=== PATIENT | female | born 1985 | race Two or more races ===

== ENCOUNTER → 2017-05-12 | Outpatient (CLI) | payer BC | END | disposition home or self-care (01) | LOC: US 13:26 | DX: Z34.92 Encounter for supervision of normal pregnancy, unspecified, second trimester (principal); Z3A.20 20 weeks gestation of pregnancy | CPT/HCPCS: 76805 ==

== ENCOUNTER → 2017-06-17 | Outpatient (CLI) | payer BC | END | disposition home or self-care (01) | LOC: US 08:09 | DX: O36.62X0 Maternal care for excessive fetal growth, second trimester, not applicable or unspecified (principal); Z3A.25 25 weeks gestation of pregnancy | CPT/HCPCS: 76805 ==

== ENCOUNTER 2017-09-30 07:07 | Inpatient (IN) | payer BC ==
[2017-09-30] MEDS ORDERED: 0.9 % SODIUM CHLORIDE 10 ML DISP.SYRIN. IV (07:45)
[2017-09-30] MEDS ORDERED: TERBUTALINE 1 MG/ML VIAL. SQ (07:45)
[2017-09-30] MEDS ORDERED: fentaNYL PF VIAL 100 MCG/2 ML VIAL IV ×2 (07:45)
[2017-09-30] MEDS ORDERED: OXYTOCIN 30 UNIT/500 ML PREMIX 500 ML IV (07:45)
[2017-09-30] MEDS ORDERED: LIDOCAINE 1% PF 30 ML VIAL. INJ (07:45)
[2017-09-30 08:52] LABS: ADD MAN DIFF? NO
[2017-09-30 08:59] LABS: BASO % 0 % (0-3); EOS # 0.1 x10^3/uL (0.0-0.7); EOS % 1 % (0-3); HEMATOCRIT 39.6 % (36.0-47.0); HEMOGLOBIN 13.4 g/dL (12.0-15.5); LYMPH # 2.3 x10^3/uL (1.0-4.8); LYMPH % 23 % (24-48); MEAN CORPUSCULAR HEMOGLOBIN 30 pg (25-35); MEAN CORPUSCULAR HGB CONC 34 g/dL (31-37); MEAN CORPUSCULAR VOLUME 88 fL (79-100); MONO # 1.1 x10^3/uL (0.0-1.1); MONO % 11 % (0-9); NEUT # 6.4 x10^3uL (1.8-7.7); NEUT % 65 % (31-73); PLATELET COUNT 213 x10^3/uL (140-400); RED BLOOD COUNT 4.47 x10^6/uL (3.50-5.40); RED CELL DISTRIBUTION WIDTH 14.8 % (11.5-14.5); WHITE BLOOD COUNT 9.9 x10^3/uL (4.0-11.0)
[2017-09-30] MEDS ORDERED: L&D EPIDURAL 50 ML SYRINGE. EP (12:00)
[2017-09-30] MEDS ORDERED: ROPIVacaine 0.2% IN 0.9%NACL PF 40 MG/20 ML DISP.SYRIN. ×2 (12:00→16:48)
[2017-09-30] MEDS: OXYTOCIN 30 UNIT/500 ML PREMIX 500 ML IV (12:13)
[2017-09-30] MEDS: IV RINGERS,LACTATED 1000ML 1,000 ML IV ×2 (12:14→21:04)
[2017-09-30] MEDS ORDERED: L&D EPIDURAL SYRINGE 50 ML EP ×2 (16:48→21:19)
[2017-09-30] MEDS ORDERED: IV RINGERS,LACTATED 1000ML 1,000 ML IV (17:12)
[2017-09-30] MEDS ORDERED: ROPIVacaine 0.2% IN 0.9%NACL PF 40 MG/20 ML DISP.SYRIN. EPI (17:15)
[2017-09-30] MEDS ORDERED: NALOXONE 0.4 MG/ML VIAL. IV (17:15)
[2017-09-30] MEDS ORDERED: ONDANSETRON PF 4 MG/2 ML VIAL. IV (17:15)
[2017-09-30] MEDS ORDERED: ePHEDrine PF IN SALINE 50 MG/5 ML DISP.SYRIN IV (17:15)
[2017-09-30] MEDS ORDERED: AMPICILLIN SODIUM 2 GM in IV NORMAL SALINE 100ML 100 ML IV (22:30)
[2017-09-30] MEDS: ACETAMINOPHEN 500 MG TABLET PO (23:02)
[2017-09-30] MEDS: GENTAMICIN SULFATE IV (23:04)
[2017-09-30] MEDS: NORMAL SALINE IV (23:04)
[2017-09-30] MEDS: AMPICILLIN SODIUM IV Push 2 GM VIAL. IVP (23:19)
[2017-10-01] MEDS: L&D EPIDURAL SYRINGE 50 ML EP (01:57)
[2017-10-01] MEDS ORDERED: miSOPROStol 200MCG TAB 200 MCG TABLET (02:54)
[2017-10-01] MEDS ORDERED: AMPICILLIN SODIUM IV Push 2 GM VIAL. IVP (05:00)
[2017-10-01] MEDS ORDERED: AMPICILLIN SODIUM 2 GM in IV NORMAL SALINE 100ML 100 ML IV (05:20)
[2017-10-01] MEDS: fentaNYL PF VIAL 100 MCG/2 ML VIAL EPI (06:06)
[2017-10-01] MEDS: GENTAMICIN SULFATE IV (06:20)
[2017-10-01] MEDS: NORMAL SALINE IV (06:20)
[2017-10-01] MEDS ORDERED: 0.9 % SODIUM CHLORIDE 10 ML DISP.SYRIN. IV (11:15)
[2017-10-01] MEDS ORDERED: HYDROCORTISONE 1% TOPICAL OINTMENT 30GM TUBE. TP (11:15)
[2017-10-01] MEDS ORDERED: MAGNESIUM HYDROXIDE 2,400 MG/30 ML ORAL.SUSP. PO (11:15)
[2017-10-01] MEDS ORDERED: MMR per PROTOCOL. MC (11:15)
[2017-10-01] MEDS ORDERED: PHENYLEPH/MINERAL OIL/PETROLAT RECTAL OINTMENT 28GM TUBE. RC (11:15)
[2017-10-01] MEDS ORDERED: OXYTOCIN 30 UNIT/500 ML PREMIX 500 ML IV (11:15)
[2017-10-01] MEDS ORDERED: SIMETHICONE 80 MG TAB.CHEW PO (11:15)
[2017-10-01] MEDS ORDERED: diphenhydrAMINE HCL 25 MG CAPSULE PO (11:15)
[2017-10-01] MEDS ORDERED: MAG HYDROX/ALUMINUM HYD/SIMETH 30 ML ORAL.SUSP PO (11:15)
[2017-10-01] MEDS ORDERED: ACETAMINOPHEN 325 MG TABLET. PO (11:15)
[2017-10-01] MEDS: IBUPROFEN 800 MG TABLET. PO (11:29)
[2017-10-01] MEDS: BENZOCAINE 20% TOPICAL AEROSOL SPRAY 57GM CAN. TP (11:30)
[2017-10-01 11:50] LABS: BASO # 0.2 x10^3/uL (0.0-0.2); BASO % 1 % (0-3); EOS % 0 % (0-3); HEMATOCRIT 33.7 % (36.0-47.0); HEMOGLOBIN 11.6 g/dL (12.0-15.5); LYMPH # 1.9 x10^3/uL (1.0-4.8); LYMPH % 11 % (24-48); MEAN CORPUSCULAR HEMOGLOBIN 30 pg (25-35); MEAN CORPUSCULAR HGB CONC 34 g/dL (31-37); MEAN CORPUSCULAR VOLUME 88 fL (79-100); MONO # 1.4 x10^3/uL (0.0-1.1); MONO % 9 % (0-9); NEUT % 79 % (31-73); PLATELET COUNT 192 x10^3/uL (140-400); RED BLOOD COUNT 3.82 x10^6/uL (3.50-5.40); RED CELL DISTRIBUTION WIDTH 14.6 % (11.5-14.5); WHITE BLOOD COUNT 16.6 x10^3/uL (4.0-11.0)
[2017-10-01 11:57] LABS: ADD MAN DIFF? YES
[2017-10-01 12:42] LABS: % BANDS 12 % (0-9); % LYMPHS 6 % (24-48); % MONOS 10 % (0-10); % SEGS 72 % (35-66); PLT ESTIMATE ADEQUATE (ADEQUATE)
[2017-10-01] MEDS: DOCUSATE SODIUM 100 MG CAPSULE. PO (17:51)
[2017-10-01] MEDS: oxyCODONE/APAP 5/325 1 TAB TABLET PO (17:51)
[2017-10-02] MEDS: DOCUSATE SODIUM 100 MG CAPSULE. PO ×2 (05:45→18:24)
[2017-10-02] MEDS: IBUPROFEN 800 MG TABLET. PO ×2 (05:45→18:23)
[2017-10-02] MEDS ORDERED: FERROUS SULFATE 325 MG TABLET. PO (08:00)
[2017-10-02] MEDS: oxyCODONE/APAP 5/325 1 TAB TABLET PO (10:40)
[2017-10-03] MEDS: DOCUSATE SODIUM 100 MG CAPSULE. PO (08:47)
[2017-10-03] MEDS: IBUPROFEN 800 MG TABLET. PO (08:48)
[2017-10-03] MEDS: BENZOCAINE 20% TOPICAL AEROSOL SPRAY 57GM CAN. TP (10:07)
== END 2017-10-03 14:07 | disposition home or self-care (01) | DRG 774 ==
LOC: 3 SO LND 07:07 → 3 NORTH 10-01 12:01
PROVIDERS: Family Medicine
PROC: 10D07Z6 Extraction of Products of Conception, Vacuum, Via Natural or Artificial Opening (ICD-10-PCS; principal; 2017-10-01)
PROC: 0DQR0ZZ Repair Anal Sphincter, Open Approach (ICD-10-PCS; 2017-10-01)
PROC: 3E0R3BZ Introduction of Anesthetic Agent into Spinal Canal, Percutaneous Approach (ICD-10-PCS; 2017-10-01)
PROC: 00HU33Z Insertion of Infusion Device into Spinal Canal, Percutaneous Approach (ICD-10-PCS; 2017-10-01)
DX: O41.1230 Chorioamnionitis, third trimester, not applicable or unspecified (principal); O75.2 Pyrexia during labor, not elsewhere classified; O63.9 Long labor, unspecified; O70.20 Third degree perineal laceration during delivery, unspecified; Z3A.39 39 weeks gestation of pregnancy; O69.81X0 Labor and delivery complicated by cord around neck, without compression, not applicable or unspecified; O76 Abnormality in fetal heart rate and rhythm complicating labor and delivery; O77.0 Labor and delivery complicated by meconium in amniotic fluid; Z37.0 Single live birth
CPT/HCPCS: 36415; 85007; 85025; 86592; 86850; 86900; 86901; G0378; G0379; J0290; J1580; J2590; J2795; J3010; J7120

== ENCOUNTER 2020-12-10 00:48 | Emergency (ER) | payer BC, OTHER ==
[~2020-12-10] VITALS: Ht 157.5 cm; Wt 55.9 kg
[2020-12-10 01:05] VITALS: BP 123/73
--- NOTE | 2020-12-10 01:56 | PHYS DOC ---
Past Medical History Past Surgical History: No Surgical History Smoking Status: Never Smoker Alcohol Use: Occasionally General Adult EDM: Chief Complaint: VAGINAL BLEEDING HPI: HPI: Patient is a 35 year old female who is G3, P2 approximately 9 weeks presents with a chief complaint of vaginal bleeding and pelvic discomfort. Patient states onset of symptoms Tuesday progressively becoming worse. Patient states initially started as spotting then started passing large clots. She states she has associated suprapubic discomfort. Review of Systems: Review of Systems: Review of systems: Constitutional symptoms- No fever, no chills. Eyes- No Discharge, No Visual Loss Respiratory symptoms- No shortness of breath, No wheezing, No Dyspnea on Exertion Cardiovascular Systems; No chest pain, No Palpitations, No syncope Gastrointestinal symptoms: NO abdominal pain, no nausea, no vomiting or diarrhea. Genitourinary symptoms: No dysuria. Positive positive vaginal bleeding positive pelvic pain Musculoskeletal symptoms: No back pain No extremity pain. NEUROLOGICAL Symptoms: No headache, no generalized weakness; No focal Weakness Skin: No rash. Heart Score: C/O Chest Pain: N/A Risk Factors: Risk Factors: DM, Current or recent (<one month) smoker, HTN, HLP, family history of CAD, obesity. Risk Scores: Score 0 - 3: 2.5% MACE over next 6 weeks - Discharge Home Score 4 - 6: 20.3% MACE over next 6 weeks - Admit for Clinical Observation Score 7 - 10: 72.7% MACE over next 6 weeks - Early Invasive Strategies Allergies: Allergies: Allergies Coded Allergies Type Severity Reaction Last Updated Verified No Known Drug Allergies 09/30/17 No Physical Exam: PE: General: alert, no acute distress. Skin: warm, dry and intact, no erythema, no rash. HENT: bilateral external ears normal, oropharynx moist, nose normal. Head:: Normocephalic, atraumatic. Neck: Trachea midline. Eyes: EOMI, Normal conjunctiva, No drainage CARDIOVASCULAR: Regular rate and rhythm RESPIRATORY: No respiratory distress Back: Full range of motion. MUSCULOSKELETAL: Full range of motion of bilateral upper and lower extremities. GASTROINTESTINAL: Abdomen soft without rebound or guarding. NEUROLOGICAL: Alert and noted to person, place and time. No neurological deficits observed Psychiatric: Cooperative. Normal judgment Current Patient Data: Vital Signs: Vital Signs Date Time Temp Pulse Resp B/P (MAP) Pulse Ox O2 Delivery O2 Flow Rate FiO2 9/15/21 01:00 98.6 80 18 123/73 (90) 99 Room Air 98.6 EKG: EKG: [] Radiology/Procedures: Radiology/Procedures: [] Impression: BETA-HCG: Not indicated UTERUS: The uterus is normal in size and shape measuring up to 10 cm in length. There is a circumscribed heterogenous mass within the uterine body measuring up to 1.6 cm, appearance is consistent with a subserosal fibroid. Endometrium is within normal limits measuring up to 9 mm in maximal diameter. There is no visualized intrauterine . RIGHT OVARY/ADNEXA: Right ovary measures 2.3 x 2.1 x 1.8 cm. The ovary is normal in size and morphology with a follicle and/or cyst which measures up to 1.3 cm. There is normal low resistance vascularity LEFT OVARY/ADNEXA: Left ovary measures 2.8 x 1.5 x 1.1 cm. The ovary is normal in size and morphology with normal low resistance vasculature. FLUID: No significant free fluid in the cul-de-sac. IMPRESSION 1. No intrauterine or extrauterine visualized. Recommend follow-up with [employer] and correlation with serial beta hCG. 2. Normal pelvic ultrasound. Course & Med Decision Making: Course & Med Decision Making Pertinent Labs and Imaging studies reviewed. (See chart for details) [] Gurpreet Disclaimer: Gurpreet Disclaimer: This electronic medical record was generated, in whole or in part, using a voice recognition dictation system. Departure Departure Impression: Primary Impression: Miscarriage Disposition: HOME / SELF CARE / HOMELESS Condition: STABLE Referrals: NO PCP (PCP) KASSI DON MD Patient Instructions: Miscarriage FRANTZRAFIA BURNETT Tawny DO Dec 10, 2020 01:56
--- NOTE | 2020-12-10 03:20 | RAD ---
EXAMINATION: Transabdominal and transvaginal grayscale and color Doppler ultrasound INDICATION: Pelvic pain COMPARISONS: None TECHNIQUE: Transabdominal and endovaginal ultrasound evaluation of the pelvis was performed. FINDINGS: MENSTRUAL STATUS: LMP 10/04/2020 BETA-HCG: Not indicated UTERUS: The uterus is normal in size and shape measuring up to 10 cm in length. There is a circumscribed hete rogenous mass within the uterine body measuring up to 1.6 cm, appearance is consistent with a subsero silviano fibroid. Endometrium is within normal limits measuring up to 9 mm in maximal diameter. There is n o visualized intrauterine . RIGHT OVARY/ADNEXA: Right ovary measures 2.3 x 2.1 x 1.8 cm. The ovary is normal in size and morphology with a follicle a nd/or cyst which measures up to 1.3 cm. There is normal low resistance vascularity LEFT OVARY/ADNEXA: Left ovary measures 2.8 x 1.5 x 1.1 cm. The ovary is normal in size and morphology with normal low re sistance vasculature. FLUID: No significant free fluid in the cul-de-sac. IMPRESSION 1. No intrauterine or extrauterine visualized. Recommend follow-up with [employer] [employer] and correlat ion with serial beta hCG. 2. Normal pelvic ultrasound. Electronically signed by: Shay Beckford DO (12/10/2020 3:17 AM) [facility]
== END 2020-12-10 03:45 | disposition home or self-care (01) ==
LOC: ER 00:48
DX: O03.9 Complete or unspecified spontaneous abortion without complication (principal); Z3A.09 9 weeks gestation of pregnancy
CPT/HCPCS: 36415; 76801; 84702; 99284-25